=== PATIENT | male | born 1985 | race Caucasian/White ===

== ENCOUNTER 2016-12-02 18:35 | Emergency (ER) | payer BC ==
[2016-12-02] MEDS ORDERED: Sodium Chloride 0.9% 1,000 ML PRIMARY IV ONE (18:53)
[2016-12-02] MEDS ORDERED: NORMAL SALINE 10 ML SYRINGE FLUSH IVP PRN (18:53)
[2016-12-02 19:01] LABS: BASOPHILS # (AUTO) 0.02 10*3/UL; BASOPHILS % (AUTO) 0.3 % (0-1); EOSINOPHILS % (AUTO) 2.3 % (0-8); HEMATOCRIT 44.6 % (42.0-52.0); IMM GRAN % (AUTO) 0.3 % (0-5); IMM GRAN# (AUTO) 0.02 10*3/UL; LYMPHOCYTES # (AUTO) 1.67 10*3/uL; LYMPHOCYTES % (AUTO) 22.3 % (10-50); MEAN CORPUSCULAR HEMOGLOBIN 27.6 PG (27-31); MEAN CORPUSCULAR HGB CONC 35.9 g/dL (33-37); MEAN PLATELET VOLUME 9.7 FL (7.4-12.2); MONOCYTES # (AUTO) 0.45 10*3/UL (0.3-0.8); NEUTROPHILS # (AUTO) 5.16 10*3/UL; NEUTROPHILS % (AUTO) 68.8 % (50-80); RDW COEFFICIENT OF VARIATION 13.1 % (11.5-14.5); RED BLOOD COUNT 5.79 10^6/uL (4.70-6.10); WHITE BLOOD COUNT 7.49 10^3/uL (4.8-10.8)
[2016-12-02 19:02] LABS: PLATELET MORPHOLOGY COMMENT NORMAL MORPHOLOGY (NORM)
[2016-12-02] MEDS ORDERED: Insulin Detemir 300unit/3ml Flexpen SUBCUT ONE (19:05)
[2016-12-02 19:07] LABS: PROTHROMBIN TIME 9.9 secs (9.7-11.4)
[2016-12-02 19:07] LABS: BILIRUBIN,URINE NEGATIVE (NEG); CLARITY,URINE CLEAR (CLEAR); GLUCOSE, URINE (UA) 500 mg/dL (NEG); LEUKOCYTE ESTERASE ,URINE NEGATIVE (NEG); NITRATE,URINE NEGATIVE (NEG); OCCULT BLOOD,URINE NEGATIVE (NEG); PH,URINE 5.5 (5.0-8.5); PROTEIN,URINE NEGATIVE (NEG); UROBILINOGEN,URINE 0.2 EU/dL (0.2)
[2016-12-02 19:08] LABS: ASPARTATE AMINO TRANSFERASE 31 IU/L (21-57); BILIRUBIN,TOTAL 0.6 mg/dL (0.3-1.2); BLOOD UREA NITROGEN 23 mg/dL (7-22); BUN/CREATININE RATIO 19.16 (6-20); CALCIUM 10.1 mg/dL (8.7-10.7); CHLORIDE 94 meq/L (98-112); CREATININE 1.2 mg/dL (0.70-1.50); EST GLOMERULAR FILTRATION > 60 (>60 ml/min/1.73m(2)); POTASSIUM 4.7 meq/L (3.8-5.2); SODIUM 135 meq/L (135-145); TOTAL PROTEIN 8.8 g/dL (6.1-8.0)
[2016-12-02 19:13] LABS: GLUCOSE 473 mg/dL (78-110)
[2016-12-02 19:13] LABS: URINE SAMPLE TYPE VOIDED SPECIMEN
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
[2016-12-02] MEDS ORDERED: KETOROLAC 30 MG/1 ML VIAL IVP ONE (20:26)
[2016-12-02] MEDS ORDERED: HYDROcodone-APAP 5 MG -325 MG TABLET PO SCH (20:30)
[2016-12-02 20:35] VITALS: RESP 20
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
[2016-12-02 22:18] VITALS: TEMP 98.2
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
== END 2016-12-02 21:58 | disposition home or self-care (01) ==
LOC: ER 18:35
DX: S43.401A Unspecified sprain of right shoulder joint, initial encounter (principal); R51 Headache; M54.2 Cervicalgia; M54.5 Low back pain; E10.9 Type 1 diabetes mellitus without complications; Z79.4 Long term (current) use of insulin; V48.5XXA Car driver injured in noncollision transport accident in traffic accident, initial encounter; Y92.411 Interstate highway as the place of occurrence of the external cause
CPT/HCPCS: 70450; 71260; 72125; 73030; 74177; 80053; 80320; 81003; 82948; 85025; 85610; 96372; 96374; 99283 ×2; J1815; J1885